=== PATIENT | male | born 1965 | race Hispanic/Latino ===

== ENCOUNTER 2022-03-04 15:00 | Emergency (ER) | payer SELFPAY ==
--- OUTSIDE RECORDS SUMMARY | 2022-03-04 15:07 | XMS REPORT | Continuity of Care Document ---
:1965 Author Organization [facility] t Address [address] [place] [address] Dr. Mace [address] [place] [id number] Care Team Providers Name Role Phone ANGIE RAE Attending Clinician Unavailable ERICK ATKINS Attending Clinician Unavailable Payers Payer Name Policy Type Policy Number Effective Date Expiration Date S pelon [facility] [id number] 2013 00:00:00 Problems This patient has no known problems. Allergies, Adverse Reactions, Alerts Allergy Allergy Status Severity Reaction(s) Onset Inactive Treating Comm ents Source Name Type Date Date Clinician NO KNOWN Drug Active [facility]ERG[facility] Medications This patient has no known medications. Procedures This patient has no known procedures. Encounters Start End Encounter Admission Attending Care Care Encounter Source Date/Time Date/Time Type Type Clinicians Facility Department ID 2020-12-31 2020-12-31 Outpatient Glenroy RAE [facility] [id number] [facility] 08:10:00 08:10:00 ANGIE [facility] 2020-12-24 2020-12-24 Outpatient Glenroy RAE [facility] [id number] [facility] 09:10:00 09:10:00 ANGIE [facility] 2020-12-03 2020-12-03 Outpatient [facility] [id number] [facility] 09:00:00 09:00:00 [facility] 2020-09-17 2020-09-17 Outpatient Glenroy ATKINS [facility] [id number] [facility] 08:40:00 08:40:00 ERICK [facility] Results This patient has no known results.
[2022-03-04 15:37] LABS: Absolute Lymphocytes (CBC) 1.4 K/uL (0.7-4.9); Hematocrit 38.9 % (39.6-49.0); Lymphocytes % 14.4 % (15.3-44.8); MCV 88.1 fL (80-100); MPV 7.9 fL (7.6-11.3); RBC Red Blood Cell Count 4.41 M/uL (4.33-5.43)
[2022-03-04 15:43] LABS: Protime INR 1.02
[2022-03-04 16:03] LABS: ALT/SGPT 26 U/L (12-78); AST/SGOT 16 U/L (15-37); Albumin 4.2 g/dL (3.4-5.0); Alkaline Phosphatase 75 U/L (45-117); BUN Blood Urea Nitrogen 33 mg/dL (7-18); Bicarbonate 26 mmol/L (21-32); Bilirubin Total 0.2 mg/dL (0.2-1.0); Glomerular Filtration Rate 41 ml/min (=/>90); Glucose Level 194 mg/dL (74-106); Potassium 4.2 mmol/L (3.5-5.1); Sodium Level 131 mmol/L (136-145)
[2022-03-04 16:04] LABS: Bilirubin Direct < 0.1 mg/dL (0-0.2)
[2022-03-04] MEDS ORDERED: NA CHLORIDE 0.9% 1,000 ML ONE (16:31)
[2022-03-04 17:36] LABS: Urine Blood Negative (Negative); Urine Glucose Trace (Negative); Urine Protein Negative (Negative); Urine pH 5.5 (5.0-7.0)
[2022-03-04 17:51] LABS: Barbiturates NEGATIVE (NEGATIVE); Benzodiazepines NEGATIVE (NEGATIVE); Cocaine NEGATIVE (NEGATIVE); METHAMPHETAM NEGATIVE (NEGATIVE); Methadone NEGATIVE (NEGATIVE); Opiates NEGATIVE (NEGATIVE); Phencyclidine NEGATIVE (NEGATIVE); THC Cannibis NEGATIVE (NEGATIVE)
--- NOTE | 2022-03-04 18:05 | RAD REPORT ---
EXAM DESCRIPTION: CT - Head Brain Wo Cont - 03/04/2022 5:50 pm CLINICAL HISTORY: seizure Headache, drowsiness, seizure COMPARISON: Head Brain Wo Cont dated 12/28/2015; CT-STROKE BRAIN W/O CONTRAST dated 09/01/2014; Small Bowel Series dated 05/27/2016 TECHNIQUE: All CT scans are performed using dose optimization technique as appropriate and may inclu de automated exposure control or mA/KV adjustment according to patient size. FINDINGS: No intracranial hemorrhage, hydrocephalus or extra-axial fluid collection.No areas of brai n edema or evidence of midline shift. The paranasal sinuses and mastoids are clear. The calvarium is intact. IMPRESSION: No acute intracranial abnormality.
--- NOTE | 2022-03-04 19:33 | ER ---
Nurse's Notes [facility] Name: Domingo Alba Age: 56 yrs Sex: Male : 1965 Arrival Date: 03/04/2022 Time: 15:08 Bed 6 Private MD: Diagnosis: Muscle Spasms;Anxiety Reaction;Renal insufficiency Presentation: 03/04 15:08 Chief complaint: EMS states: pt was at work, co workers called for convulsion tw2 like/seizure like activity while at work, in the front seat of the vehicle. pt became violent whenever he was touched, even with his spouse on scene. pt spilled coffee on himself during the outburst. we gave 2mg IM Ativan. now he is now calm and cooperative. vs stable. HR 100-105. BGL 247 mg/dL. pt has hx of anxiety and muscle cramps that lead to electrolyte imbalance that cause him to be altered. Coronavirus screen: At this time, the client does not indicate any symptoms associated with coronavirus-19. Ebola Screen: Patient denies travel to an Ebola-affected area in the 21 days before illness onset. Initial Sepsis Screen: Does the patient meet any 2 criteria? HR > 90 bpm. No. Patient's initial sepsis screen is negative. Does the patient have a suspected source of infection? No. Patient's initial sepsis screen is negative. Risk Assessment: Do you want to hurt yourself or someone else? Patient reports no desire to harm self or others. Onset of symptoms was March 04, 2022. 15:08 Method Of Arrival: EMS: [facility] tw2 15:08 Acuity: BASHIR 3 tw2 15:17 Note Provider ARY Bravo at bedside at this time. tw2 Triage Assessment: 15:08 General: Appears in no apparent distress. Behavior is cooperative, quiet. Pain: Denies tw2 pain. Neuro: Bullock Agitation-Sedation Scale (RASS): -1 Drowsy Level of Consciousness is obeys commands, Oriented to person, place, situation. Cardiovascular: Patient's skin is warm and dry. Respiratory: Airway is patent Respiratory effort is even, unlabored, Respiratory pattern is regular, symmetrical. GI: No signs and/or symptoms were reported involving the gastrointestinal system. Abdomen is flat. Musculoskeletal: Range of motion: intact in all extremities. Historical: - Allergies: 15:18 No Known Allergies; tw2 - PMHx: 15:11 Diabetes - NIDDM; ph 15:18 Anxiety; Muscle Cramps; tw2 - Immunization history:: Adult Immunizations unknown. - Social history:: Smoking status: . Screenin:10 Abuse screen: Denies threats or abuse. Denies injuries from another. Nutritional ph screening: No deficits noted. Tuberculosis screening: No symptoms or risk factors identified. Fall Risk None identified. Assessment: 15:18 Reassessment: see triage assessment. tw2 16:20 Reassessment: Patient appears in no apparent distress at this time. Patient and/or tw2 family updated on plan of care and expected duration. Pain level reassessed. 17:07 Reassessment: Patient appears in no apparent distress at this time. Patient and/or ph family updated on plan of care and expected duration. Pain level reassessed. 18:28 Reassessment: Patient appears in no apparent distress at this time. Patient and/or ph family updated on plan of care and expected duration. Pain level reassessed. Pt more alert, oriented x 3, additional fluid bolus cancelled, pt received 1000 mL per EMS. Vital Signs: 15:08 BP 140 / 82; Pulse 103; Resp 21; Temp 97.5(TE); Pulse Ox 97% on R/A; Weight 72.57 kg tw2 (M); 16:20 BP 92 / 63; Pulse 86; Resp 14; Pulse Ox 100% on R/A; tw2 17:07 BP 101 / 40; Pulse 81; Resp 18; Pulse Ox 98% on R/A; ph 18:16 BP 102 / 60; Pulse 81; Resp 18; Pulse Ox 98% on R/A; ph Law Coma Score: 15:08 Eye Response: spontaneous(4). Verbal Response: oriented(5). Motor Response: obeys tw2 commands(6). Total: 15. ED Course: 15:08 Patient arrived in ED. tw2 15:09 Bed in low position. Call light in reach. Side rails up X 1. Seizure precautions mb7 initiated. Door closed. Noise minimized. Warm blanket given. Client placed on continuous cardiac and pulse oximetry monitoring. NIBP monitoring applied. gambling monitor on. 15:10 Yojana Colvin RN is Primary Nurse. ph 15:10 Arm band placed on Patient placed in an exam room, on a stretcher, on personnel monitor, ph on pulse oximetry. 15:16 Triage completed. tw2 15:17 Conner Mariscal PA is PHCP. tw2 15:19 Maintain EMS IV. Dressing intact. Good blood return noted. Site clean \T\ dry. Gauge \T\ tw 2 site: 20 g LEFT AC. 17:52 CT Head Brain wo Cont In Process Unspecified. EDMS 19:33 Alphonso Sorto MD is Attending Physician. m 19:57 No provider procedures requiring assistance completed. IV discontinued, intact, aa9 bleeding controlled, No redness/swelling at site. Pressure dressing applied. Administered Medications: 16:27 Drug: NS 0.9% 1000 ml Route: IV; Rate: 1 bolus; Site: left antecubital; tw2 18:28 Follow up: Response: No adverse reaction; IV Status: Completed infusion; IV Intake: ph 1000ml 18:27 Not Given (Other Intervention Used): NS 0.9% 500 ml IV at bolus once ph Medication: 15:11 VIS not applicable for this client. ph Intake: 18:28 IV: 1000ml; Total: 1000ml. ph Outcome: 19:32 Discharge ordered by . [facility] 19:58 Discharged to home ambulatory. aa9 19:58 Condition: stable 19:58 Discharge instructions given to patient, significant other, Instructed on discharge instructions, follow up and referral plans. medication usage, Demonstrated understanding of instructions, follow-up care, medications, Prescriptions given X 1. 19:58 Patient left the ED. aa9 Signatures: Dispatcher [employer] EDMS Conner Mariscal PA PA jmm Hall, Patricia, RN RN ph Wise, Tara RN RN tw2 Renee Pang 7 Ramona Dow, SLOAN RN aa9 Corrections: (The following items were deleted from the chart) 15:28 15:08 Chief complaint: EMS states: pt was at work, co workers called for convulsion tw2 like/seizure like activity while at work, in the front seat of the vehicle. pt became violent whenever he was touched, even with his spouse on scene. pt spilled coffee on himself during the outburst. we gave 2mg IM Ativan. now he is now calm and cooperative. vs stable. HR 100-105. pt has hx of anxiety and muscle cramps that lead to electrolyte imbalance that cause him to be altered. tw2
--- NOTE | 2022-03-04 19:33 | EDPHYS ---
Physician Documentation [facility] Name: Domingo Alba Age: 56 yrs Sex: Male : 1965 Arrival Date: 03/04/2022 Time: 15:08 Bed 6 Private MD: ED Physician Alphonso Sorto HPI: 03/04 15:18 This 56 yrs old Male presents to ER via EMS with complaints of Probable jmm Seizure, Altered Mental Status. 15:18 Onset: The symptoms/episode began/occurred acutely, just prior to arrival. Is a jmm 56-year-old male with history of diabetes mellitus, anxiety the presents emerged department with complaints of generalized muscle cramps per family. Patient soon developed with the described as a panic attack. Patient states he was working outside all day performing strenuous activities. This is occurred to the patient in the past. Patient states that he will develop the spasms and subsequently developed panic attacks . Denies history of seizures. Historical: - Allergies: 15:18 No Known Allergies; tw2 - PMHx: 15:11 Diabetes - NIDDM; ph 15:18 Anxiety; Muscle Cramps; tw2 - Immunization history:: Adult Immunizations unknown. - Social history:: Smoking status: . ROS: 15:18 Constitutional: Negative for fever, chills, and weight loss, Cardiovascular: Negative jmm for chest pain, palpitations, and edema, Respiratory: Negative for shortness of breath, cough, wheezing, and pleuritic chest pain. 15:18 Neuro: Positive for seizure activity, syncope. 15:18 All other systems are negative. Exam: 15:18 Constitutional: This is a well developed, well nourished patient who is awake, alert, jmm and in no acute distress. Head/Face: atraumatic. Eyes: EOMI, no conjunctival erythema appreciated ENT: Moist Mucus Membranes Neck: Trachea midline, Supple Chest/axilla: Normal chest wall appearance and motion. Cardiovascular: Regular rate and rhythm. No edema appreciated Respiratory: Normal respirations, no respiratory distress appreciated Abdomen/GI: Non distended Back: Normal ROM Skin: General appearance color normal MS/ Extremity: Moves all extremities, no obvious deformities appreciated, no edema noted to the lower extremities Neuro: Awake and alert Psych: Behavior is normal, Mood is normal, Patient is cooperative and pleasant 16:43 ECG was reviewed by the Attending Physician. [facility] Vital Signs: 15:08 BP 140 / 82; Pulse 103; Resp 21; Temp 97.5(TE); Pulse Ox 97% on R/A; Weight 72.57 kg tw2 (M); 16:20 BP 92 / 63; Pulse 86; Resp 14; Pulse Ox 100% on R/A; tw2 17:07 BP 101 / 40; Pulse 81; Resp 18; Pulse Ox 98% on R/A; ph 18:16 BP 102 / 60; Pulse 81; Resp 18; Pulse Ox 98% on R/A; ph Law Coma Score: 15:08 Eye Response: spontaneous(4). Verbal Response: oriented(5). Motor Response: obeys tw2 commands(6). Total: 15. MDM: 15:18 Patient medically screened. [facility] 19:30 Data reviewed: vital signs, nurses notes. Counseling: I had a detailed discussion with [facility] the patient and/or guardian regarding: the historical points, exam findings, and any diagnostic results supporting the discharge/admit diagnosis, lab results, radiology results, the need for outpatient follow up, to return to the emergency department if symptoms worsen or persist or if there are any questions or concerns that arise at home. 03/04 15:20 Order name: Acetaminophen; Complete Time: 16:12 [facility] 03/04 15:20 Order name: Basic Metabolic Panel; Complete Time: 16:12 [facility] 03/04 15:20 Order name: CBC with Diff; Complete Time: 15:44 [facility] 03/04 15:20 Order name: ETOH Level; Complete Time: 16:12 [facility] 03/04 15:20 Order name: Hepatic Function; Complete Time: 16:12 [facility] 03/04 15:20 Order name: PT-INR; Complete Time: 15:44 [facility] 03/04 15:20 Order name: Ptt, Activated; Complete Time: 15:44 [facility] 03/04 15:20 Order name: Salicylate; Complete Time: 16:23 [facility] 03/04 15:20 Order name: Urine Drug Screen; Complete Time: 17:55 [facility] 03/04 15:37 Order name: CT Head Brain wo Cont; Complete Time: 18:08 [facility] 03/04 16:13 Order name: CPK; Complete Time: 16:36 [facility] 03/04 17:36 Order name: Urine Dipstick-Ancillary; Complete Time: 17:40 [facility] 03/04 15:20 Order name: EKG; Complete Time: 15:20 [facility] 03/04 15:20 Order name: EKG - Nurse/Tech; Complete Time: 15:22 [facility] 03/04 15:20 Order name: IV Saline Lock; Complete Time: 15:20 [facility] 03/04 15:20 Order name: Labs collected and sent; Complete Time: 15:22 [facility] 03/04 15:20 Order name: Urine Dipstick-Ancillary (obtain specimen); Complete Time: 18:12 [facility] EC:43 Rate is 99 beats/min. Rhythm is regular. QRS [place] is Normal. MN interval is normal. QRS jmm interval is normal. QT interval is normal. No Q waves. T waves are Normal. No ST changes noted. Reviewed by me. Administered Medications: 16:27 Drug: NS 0.9% 1000 ml Route: IV; Rate: 1 bolus; Site: left antecubital; tw2 18:28 Follow up: Response: No adverse reaction; IV Status: Completed infusion; IV Intake: ph 1000ml 18:27 Not Given (Other Intervention Used): NS 0.9% 500 ml IV at bolus once ph Disposition: 03/05 11:49 Co-signature as Attending Physician, Alphonso Sorto MD I agree with the assessment and kdr plan of care. Disposition Summary: 03/04/22 19:32 Discharge Ordered Location: Home [facility] Condition: Stable jm Diagnosis - Muscle Spasms jmm - Anxiety Reaction jmm - Renal insufficiency [facility] Followup: [facility] - With: Private Physician - When: 2 - 3 days - Reason: Recheck today's complaints, Continuance of care, Re-evaluation by your physician Discharge Instructions: - Discharge Summary Sheet [facility] - Spasticity [facility] Forms: - Medication Reconciliation Form [facility] - Thank You Letter [facility] - Antibiotic Education [facility] - Prescription Opioid Use [facility] Prescriptions: - orphenadrine citrate 100 mg Oral Tablet Sustained Release - take 1 tablet by ORAL route 2 times per day As needed; 20 tablet; Refills: 0, jm Product Selection Permitted Signatures: Dispatcher [facility] Alphonso Sorto MD MD kdr Mickail, Joel, PA PA [facility] Yojana Colvin RN Otilia Donaldson ph, RN RN tw2 Corrections: (The following items were deleted from the chart) 03/04 15:20 15:20 Suicide Screening ([place]) ordered. nilesh tw2
[2022-03-04 23:01] VITALS: TEMP 97.5
[2022-03-04 23:05] VITALS: O2SAT 98
[2022-03-04 23:07] VITALS: BP 102/60
--- NOTE | 2022-03-05 06:25 | EKG ---
Test Date: 2022-03-04 Test Time: 15:25:12 Equipment Analyst: MANAS MEASUREMENT RESULTS: Intervals: Rate: 99 IA: 144 QRSD: 82 QT: 346 QTc: 444 [place]: P: 67 IA: 144 QRS: 52 T: 63 INTERPRETIVE STATEMENTS: Normal sinus rhythm Normal ECG Compared to ECG 12/28/2015 14:13:24 No significant changes Electronically Signed On 03-05-22 06:23:49 CDT by Jad Grimaldo
== END 2022-03-04 19:58 | disposition home or self-care (01) ==
LOC: ER 15:00
DX: M62.838 Other muscle spasm (principal); F41.1 Generalized anxiety disorder; N28.9 Disorder of kidney and ureter, unspecified; E11.9 Type 2 diabetes mellitus without complications
CPT/HCPCS: 36415; 70450; 80048; 80076; 80307; 80320; 80329; 81003; 82550; 85025; 85610; 85730; 93005; J7030